=== PATIENT | female | born 1985 | race Caucasian/White ===

== ENCOUNTER → 2024-07-27 | Outpatient (CLI) | payer OTHER ==
[~2024-07-27] MED LIST: CALC500C16 PO; EQL50TAB2 PO; FISH1000 PO; OMEG-28; PREN27TA3
== END ==
LOC: M PLAIMG 14:22
PROVIDERS: ATTEND Physician Assistant
DX: J32.8 Other chronic sinusitis (principal)

== ENCOUNTER → 2024-08-28 | Outpatient (CLI) | payer OTHER | LOC: M WHC 11:22 | PROVIDERS: ATTEND Registered Nurse | DX: R10.2 Pelvic and perineal pain (principal) ==